=== PATIENT | female | born 1955 | race Caucasian/White ===

== ENCOUNTER 2016-09-13 08:22 | Day surgery (SDC) | payer OTHER, BC ==
[2016-09-13] MEDS ORDERED: PROPOFOL/EMULSION 500 MG/50 ML BOTTLE IV ONE (09:14)
[2016-09-13] MEDS ORDERED: LR 1,000 ML IV ONE (09:25)
--- NOTE | 2016-09-13 11:02 | GPN ---
[f rep st] PROCEDURE NOTE PROCEDURE: Colonoscopy. INDICATIONS FOR PROCEDURE: Surveillance for personal history of colon adenomas. CONSENT: Informed consent was obtained from the patient after a thorough explanation of risks, bene fits, and alternatives to the procedures. All questions were answered. COMPLICATIONS: No immediate complications were encountered. MEDICATIONS GIVEN: Propofol as per Anesthesia. DESCRIPTION OF EXAM: After informed consent was obtained, the patient was positioned in the left la teral decubitus position. Sedation was achieved by anesthesiologist and the scope was advanced unde r direct vision through the anal orifice and as far as the appendiceal orifice and terminal ileum wi thout difficulty. QUALITY OF PREPARATION: Good. TOLERANCE OF EXAM: Good. FINDINGS: 1. Terminal ileum: Normal. 2. Cecum: A tattoo was present in the cecum with what appeared to be a recurrent flat 8 mm polyp. This was resected with a cold snare in 1 piece, retrieved, and sent for pathological examination. 3. Ascending colon: A tattoo was seen in the ascending colon. There appeared to be no residual po lyp present there. 4. Transverse colon: Normal. 5. Descending colon: A tattoo was seen in the descending colon with no obvious recurrent polyp. 6. Sigmoid colon: Moderate sigmoid diverticulosis was seen. 7. Rectum: Normal, other than small internal hemorrhoids. IMPRESSION: A single suspected recurrent polyp which was flat in the cecum and was resected with a cold snare. Diverticulosis. Two other tattoos seen without obvious recurrent polyp. RECOMMENDATIONS: 1. Await pathology results. 2. Discharge home with regular diet. 3. Tentative plan for repeat colonoscopy in 1 year given I suspect the polyp found in the cecum is recurrent as there was a tattoo present. 4. Postcolonoscopy instructions were given and the patient was instructed to call with any question s or concerns. /[id number]/MODL
== END 2016-09-13 11:40 | disposition home or self-care (01) ==
LOC: FSGY 08:22
PROVIDERS: ATTEND Internal Medicine
PROC: 0DJD8ZZ Inspection of Lower Intestinal Tract, Via Natural or Artificial Opening Endoscopic (ICD-10-PCS; principal; 2016-09-13 09:30)
PROC: 0DBH8ZX Excision of Cecum, Via Natural or Artificial Opening Endoscopic, Diagnostic (ICD-10-PCS; principal; 2016-09-13 09:30)
DX: Z12.11 Encounter for screening for malignant neoplasm of colon (principal); D12.0 Benign neoplasm of cecum; K57.30 Diverticulosis of large intestine without perforation or abscess without bleeding; J43.9 Emphysema, unspecified; Z99.81 Dependence on supplemental oxygen
CPT/HCPCS: J2704

== ENCOUNTER → 2017-09-19 | Outpatient (CLI) | payer OTHER, BC ==
--- NOTE | 2017-09-24 15:09 | CPEKG ---
Heart Rate: 85 RR Interval: 706 P-R Interval: 140 QRSD Interval: 92 QT Interval: 372 QTC Interval: 443 P [place]: 65 QRS [place]: 71 T Wave [place]: 59 EKG Severity - NORMAL ECG - EKG Impression: SINUS RHYTHM EKG Impression: SMALL INFERIOR Q-WAVES. Electronically Signed By: Marj Mccord 24-Sep-2017 20:25:07
== END ==
LOC: FLAB 13:22
PROVIDERS: ATTEND Internal Medicine Gastroenterology
DX: Z01.810 Encounter for preprocedural cardiovascular examination (principal)

== ENCOUNTER 2017-09-23 12:47 | Day surgery (SDC) | payer OTHER, BC ==
[2017-09-19 13:56] LABS: PLATELET COUNT 207 10^3/uL (150-400)
[2017-09-23] MEDS ORDERED: LR 1,000 ML IV ONE (14:13)
[2017-09-23] MEDS ORDERED: INDOMETHACIN 50 MG SUPP PR PRN (14:19)
--- NOTE | 2017-09-23 14:19 | PDGENHP ---
History & Physical Chief Complaint: hx of polyps History of Present Illness: 61 year old female presents for surveillance colonoscopy. Pertinent Past, Social, Family History: pMHx: HTN, high cholesterol, OA Relevant Physical Exam: HEENT: anicteric. CV: RRR +s1s2. lungs: CTAB. Abd: soft, nt, + bs Cardiorespiratory Assessment: ASA 2
--- NOTE | 2017-09-23 14:21 | PDANEPAE ---
ANE History of Present Illness Patient presents for colonoscopy ANE Past Medical History - Cardiovascular History Hx Hypertension: Yes Hx Arrhythmias: No Hx Chest Pain: No Hx Coronary Artery / Peripheral Vascular Disease: No Hx CHF / Valvular Disease: No Hx Palpitations: No - Pulmonary History Hx COPD: Yes Hx Asthma/Reactive Airway Disease: No Hx Recent Upper Respiratory Infection: No Hx Oxygen in Use at Home: Yes O2 in Use at Home (L/minute): 3.L 24/7 Hx Sleep Apnea: No Sleep Apnea Screening Result - Last Documented: Negative Pulmonary History Comment: EMPHYSEMA - Neurologic History Hx Cerebrovascular Accident: No Hx Seizures: No Hx Dementia: No - Endocrine History Hx Diabetes: No - Renal History Hx Renal Disorders: No - Liver History Hx Hepatic Disorders: No - Neurological & Psychiatric Hx Hx Neurological and Psychiatric Disorders: Yes Neurological / Psychiatric History Comment: ANXIETY & DEPRESSION - Cancer History Hx Cancer: No - Congenital Disorder History Hx Congenital Disorders: No - GI History Hx Gastrointestinal Disorders: Yes Gastrointestinal History Comment: HX POLYPS - Other Health History Other Health History: anemia, pt states usually borderline - Chronic Pain History Chronic Pain: Yes (ARTHRITIS HANDS & FEET) - Surgical History Prior Surgeries: TONSILLECTOMY. CSECTIONX2. TUBAL LIG. HYSTERECTOMY. L KNEE REPAIR X2. ISIDRO BUNIONS. L TKA. HERNIA UMB X2. TRANSTRACHEAL O2 PLACEMENT ANE Review of Systems Review of Systems: - Exercise capacity METS (RN): 3 METS ANE Patient History - Allergies Allergies/Adverse Reactions: clavulanic acid Allergy (Verified 09/17/17 12:10) codeine Allergy (Verified 09/17/17 12:10) hydrocodone [From Vicodin] Allergy (Verified 09/17/17 12:10) ITCHING, H/A hydromorphone [From Dilaudid] Allergy (Verified 09/17/17 12:10) DIFFICULTY METABOLIZING Sulfa (Sulfonamide Antibiotics) Allergy (Verified 09/17/17 12:10) - Home Medications Home medications: home medication list seen and reviewed Home Medications: Diltiazem 09/12/16 [Last Taken Unknown] Meloxicam 09/12/16 [Last Taken Unknown] Sertraline HCl 09/12/16 [Last Taken Unknown] Simvastatin 09/12/16 [Last Taken Unknown] Spiriva Inhaler (RX) 09/12/16 [Last Taken Unknown] Symbicort 160-4.5 Mcg Inh (*) 09/12/16 [Last Taken Unknown] Tramadol HCl 09/12/16 [Last Taken Unknown] - NPO status NPO Status: no food or drink >8 hours NPO Since - Liquids (Date): 09/23/17 NPO Since - Liquids (Time): 02:30 NPO Since - Solids (Date): 09/21/17 NPO Since - Solids (Time): 20:00 - Smoking Hx Smoking Status: Former smoker - Family Anes Hx Family Hx Anesthesia Complications: sister has BP problems with anesthesia, pt stated she tries to on them ANE Labs/Vital Signs - Labs Result Diagrams: 09/19/17 13:34 - Vital Signs Blood Pressure: 117/74 Heart Rate: 80 Respiratory Rate: 16 O2 Sat (%): 95 Height: 142.24 cm Weight: 71.214 kg ANE Physical Exam - Airway Neck exam: FROM Mallampati Score: Class 2 Mouth exam: normal dental/mouth exam - Pulmonary Pulmonary: no respiratory distress - Cardiovascular Cardiovascular: regular rate and rhythym - ASA Status ASA Status: IV ANE Anesthesia Plan Anesthesia Plan: GA with mask (rba discussed)
[2017-09-23] MEDS ORDERED: PROPOFOL/EMULSION 500 MG/50 ML BOTTLE IV ONE (14:27)
[2017-09-23] MEDS ORDERED: NS 500 ML IV SCH (14:30)
[2017-09-23] MEDS ORDERED: LR 500 ML IV PRN (14:40)
[2017-09-23] MEDS ORDERED: NALOXONE HCL 0.4 MG/ML INJ IVP PRN (14:40)
[2017-09-23] MEDS ORDERED: ONDANSETRON 4 MG/2 ML VIAL IVP PRN (14:40)
--- NOTE | 2017-09-23 15:06 | POSTANESTH ---
Post Anesthetic Evaluation Cardiovascular Status: Similar to Pre-Op Cond Respiratory Status: Similar to Pre-op Cond. Level of Consciousness/Mental Status: Mildly Sleepy, Arousable Pain Control: Adequate, Prn Tx Ordered Nausea/Vomiting Control: Adequate, Prn Tx Ordered Complications Possibly Related to Anesthesia: None Noted
--- NOTE | 2017-09-23 15:16 | GIREPORT ---
[facility] Surgical Services - Endoscopy Department Patient Name: Yadi Colon Procedure Date: 09/23/2017 2:07 PM Patient Type: Outpatient Attending MD/ ER Physician: Romaine Flores MD Procedure: Colonoscopy Indications: High risk colon cancer surveillance: Personal history of colonic polyps Patient Profile: 61 year old female with a history of complex polyps presents for surveillance colonoscopy. Providers: Romaine Flores MD Medicines: Monitored Anesthesia Care Complications: No immediate complications. Estimated blood loss: Minimal. Description of Procedure: After obtaining informed consent, the scope was passed under direct vis ion. Throughout the procedure, the patient's blood pressure, pulse, and oxyg en saturations were monitored continuously. The Colonoscope with irrigatio n channel was introduced through the anus and advanced to the cecum, identified by appendiceal orifice and ileocecal valve. The colonoscopy was performed without difficulty. The patient tolerated the procedure well. The quality of the bowel preparation was good. Findings: The perianal and digital rectal examinations were normal. Pertinent negatives include no palpable rectal lesions. A 3 mm polyp was found in the cecum. The polyp was sessile. The polyp w as removed with a cold biopsy forceps. Resection and retrieval were comple te. A tattoo was seen in the cecum. A post-polypectomy scar was found at th e tattoo site. There was no evidence of residual polyp tissue. A tattoo was seen in the ascending colon. A post-polypectomy scar was f ound at the tattoo site. There was no evidence of residual polyp tissue. A tattoo was seen in the descending colon. A post-polypectomy scar was found at the tattoo site. There was no evidence of residual polyp tissue. A 6 mm polyp was found in the sigmoid colon. The polyp was sessile. The polyp was removed with a hot snare. Resection and retrieval were comple te. Diverticula were found in the sigmoid colon. Estimated Blood Loss: Estimated blood loss was minimal. Post Op Diagnosis: - One 3 mm polyp in the cecum, removed with a cold biopsy forceps. Rese cted and retrieved. - A tattoo was seen in the cecum. A post-polypectomy scar was found at the tattoo site. There was no evidence of residual polyp tissue. - A tattoo was seen in the ascending colon. A post-polypectomy scar was found at the tattoo site. There was no evidence of residual polyp tissu e. - A tattoo was seen in the descending colon. A post-polypectomy scar wa s found at the tattoo site. There was no evidence of residual polyp tissu e. - One 6 mm polyp in the sigmoid colon, removed with a hot snare. Resect ed and retrieved. Recommendation: - Discharge patient to home (with escort). - Resume previous diet. - Continue present medications. - Repeat colonoscopy in 3 years for surveillance. - Await pathology results. - Use fiber, for example Citrucel, Fibercon, Konsyl or Metamucil. - Thank you for allowing me to participate in the care of your patient. Attending Participation: I personally performed the entire procedure. Romaine Flores MD Romaine Flores MD 09/23/2017 3:16:01 PM This report has been signed electronicallyRomaine Flores MD Number of Addenda: 0 Note Initiated On: 09/23/2017 2:07 PM Total Procedure Duration Time 0 hours 18 minutes 56 seconds [email or web address]
[2017-09-23 15:46] VITALS: BP 138/88
== END 2017-09-23 17:15 | disposition home or self-care (01) ==
LOC: FSGY 12:47
PROVIDERS: ATTEND Internal Medicine Gastroenterology
PROC: 0DBN8ZX Excision of Sigmoid Colon, Via Natural or Artificial Opening Endoscopic, Diagnostic (ICD-10-PCS; principal; 2017-09-23 14:30)
PROC: 0DBH8ZX Excision of Cecum, Via Natural or Artificial Opening Endoscopic, Diagnostic (ICD-10-PCS; principal; 2017-09-23 14:30)
DX: Z12.11 Encounter for screening for malignant neoplasm of colon (principal); D12.0 Benign neoplasm of cecum; D12.5 Benign neoplasm of sigmoid colon; I10 Essential (primary) hypertension; E78.00 Pure hypercholesterolemia, unspecified
CPT/HCPCS: J2704